=== PATIENT | female | born 1990 | race Caucasian/White ===

== ENCOUNTER 2018-01-25 08:00 | Inpatient (IN) ==
[2018-01-25] MEDS ORDERED: Naloxone 0.4 MG/ML INJ IVP PRN (08:16)
[2018-01-25] MEDS ORDERED: *HR* Nalbuphine 10 MG/ML AMPUL IVP PRN (08:16)
[2018-01-25] MEDS ORDERED: Metoclopramide 10 MG/2 ML VIAL IVP PRN (08:16)
[2018-01-25] MEDS ORDERED: Ondansetron 4 MG/2 ML VIAL IVP PRN (08:16)
[2018-01-25] MEDS ORDERED: Famotidine 20 MG/2 ML VIAL IVP PRN (08:16)
[2018-01-25] MEDS ORDERED: miSOPROStol 25 MCG TABLET VG PRN (08:19)
--- NOTE | 2018-01-25 08:24 | OB/GYN History & Physical ---
Date of Encounter: 01/25/18 Time of Encounter: 08:20 Assessment and Plan (1) and not yet delivered in third trimester Current visit: Yes Status: Acute (2) 39 weeks gestation of Current visit: Yes Status: Acute (3) Elective induction of labor planned Current visit: Yes Status: Acute Patient reduced with a Santamaria catheter and Cytotec plan is to anticipate vaginal delivery History of Present Illness HPI: Ms. Odom is a 27 year old female 2 para 1 at 39-0/7 weeks by last menstrual period equal to 9-4/7 week ultrasound who presented for induction of labor secondary term with favorable cervix. Patient's care has been unremarkable patient does of a history of microadenoma recently had some blurred vision did follow up with her speech and drama teacher and corrections identification technician they did not feel it was related to that. PIH labs obtained the patient was also unremarkable. Blood pressures remained stable. Patient did have an ultrasound 2 weeks ago baby weight 2848 g which was to 50th percentile with an MILADIS of 14 cm. Patient is GBS negative, Rh-, rubella positive, Varicella negative. Has been having occasional contractions at nighttime nothing throughout the day denies any leaking of fluid with movement. Past Med Surg Social Fam HX - Past Medical History Source: patient, old records reviewed Medical history: non-contributory, other (Pituitary microadenoma) Psychiatric history: no psych history - Past Surgical History Surgical History: no surgical history - Social History Smoking Status: Never smoker Smokeless Tobacco Status: No Alcohol use: none Drug use: none Occupational status: employed Current living situation: Home - Independent Activity Level: Independent ambulation Recent Out of Country Travel Within the Last 8 Weeks: No Exposure or Possible Exposure to Illness During Travel: No - Additional Family History Additional family history: Family history noncontributory Obstetrical History - Pregnancies : 2 Para: 1 Term: 1 : 0 Ab's: 0 Livin Medications and Allergies Amoxicillin [Amoxil] 500 mg PO BID #20 capsule 09/22/17 [Rx] Doxylamine/Pyridoxine HCl [Diclegis Dr 10-10 mg Tablet] 1 each PO DAILY [History] Pnv62/FA/Om3/Dha/Epa/Fish Oil [[facility] Gummy Vitamins] 1 each PO DAILY [History] 3 Allergy/AdvReac Type Severity Reaction Status Date / Time muscle relaxers Allergy Hypotension Uncoded 09/22/17 12:41 Review of System OB All systems PM: reviewed and no additional remarkable complaints except as stated Exam - Constitutional Constitutional: well developed, well nourished, no acute distress, average body habitus - HEENT HEENT: EOMI, PERRL, Mucus Membranes Moist - Neck Neck exam: full ROM - Lungs Respiratory exam: CTAB - Cardiovascular Cardiovascular exam: RRR - Abdomen Abdomen: Present: bowel sounds normal, gravid - Cervix Dilation: 2 Effacement: 70 Station: -3 (Santamaria catheter placed 30 mL balloon inflated then 25 g Cytotec placed vaginally, heart tones 140s reactive occasional contractions seen.) Results All other labs normal. - VTE Reasons for not Prescribing Prophylaxis: Treatment not Indicated - Low risk for VTE
[2018-01-25] MEDS ORDERED: Ringers Solution, Lactated 1,000 ML IVC SCH (08:30)
[2018-01-25 08:48] LABS: Basophils # 0.1 K/mcL (0.0-0.2); Basophils % 0.4 %; Eosinophils # 0.1 K/mcL (0.0-0.6); Eosinophils % 0.7 %; Hematocrit 33.6 % (35.3-44.9); Hemoglobin 11.3 g/dL (11.5-15.4); Immature Granulocytes % 1.1 % (0-4); Lymphocytes # 2.5 K/mcL (0.6-4.6); Lymphocytes % 18.6 %; Mean Corpuscular HGB Conc 33.6 g/dL (31.6-35.5); Mean Corpuscular Hemoglobin 28.3 pg (28.0-33.3); Mean Platelet Volume 10.1 fL (9.4-12.4); Monocytes # 0.9 K/mcL (0.0-1.3); Monocytes % 6.3 %; Platelet Count 290 K/mcL (140-400); Red Cell Distribution Width 13.8 % (11.5-14.5); Segmented Neutrophils % 72.9 %
[2018-01-25 09:19] LABS: Amphetamine Screen,Urine Negative ng/mL (Cutoff=1000); Barbiturate Screen,Urine Negative ng/mL (Cutoff=200); Benzodiazepines Screen,Urine Negative ng/mL (Cutoff=200); Cannabinoid Screen,Urine Negative ng/mL (Cutoff = 50); Cocaine Screen,Urine Negative ng/mL (Cutoff= 300); Opiate Screen,Urine Negative ng/mL (Cutoff=300); Phencyclidine Screen,Urine Negative ng/mL (Cutoff=25)
--- NOTE | 2018-01-25 09:34 | Anesthesia Evaluation PreOp ---
Date of Encounter: 01/25/18 Time of Encounter: 09:32 - Past History Planned Operation: ritesh Cardiac History: Denies any Significant Hx Pulmonary History: Denies Any Significant HX HOPPER OPERATOR History: Other (Pituitary tumor, diagonosed 6-7 yrs ago with symptoms of H/A , double vision, and . All symptoms resolved after medcial treatment was prescribed. Has been off of medical treament during without return of symptoms) Other Medical History: GERD (occasional heartburn) Anesthesia History: No Prior Anesthetic Complications (no prior anesthetics) : Yes (39 weeks ) Alcohol Use: none Drug use: none Medications and Allergies Amoxicillin [Amoxil] 500 mg PO BID #20 capsule 09/22/17 [Rx] Pnv62/FA/Om3/Dha/Epa/Fish Oil [[facility] Gummy Vitamins] 1 each PO DAILY [History] 3 Allergy/AdvReac Type Severity Reaction Status Date / Time muscle relaxers Allergy Hypotension Uncoded 09/22/17 12:41 - Meds/Allergy Pre-op Review Medications Reviewed: Yes Allergies Reviewed: Yes Beta Blockers on Current Med List: No Anesthesia Results - Labs 01/25/18 08:30 Anesthesia Exam O2 Sat Height 1.6 m Weight 68.039 kg Height: 63 Weight: 68 - HOPPER OPERATOR LOC: Oriented HOPPER OPERATOR Motor: Normal RUE, Normal LUE, Normal RLE, Normal LLE, Normal Face HOPPER OPERATOR Sensory: Normal: RUE, LUE, RLE, LLE, Face Anesthesia Assess/Plan ASA Score: 2 Modified Ester Scale for Level of Consciousness: Cooperative, oriented, and tranquil Anesthetic Plan: Regional Monitoring Plan: Standard Monitors
[2018-01-25] MEDS ORDERED: *HR* FentaNYL (PF) 100 MCG/2 ML VIAL EP ONE (09:36)
[2018-01-25] MEDS ORDERED: EPHEDrine 50 MG/ML VIAL IVP PRN (09:36)
[2018-01-25] MEDS ORDERED: Bupivacaine-MPF 0.25% 10 ML VIAL EP ONE (09:36)
[2018-01-25] MEDS ORDERED: Epidural Premix (fent/bupiv) 110 ML EP SCH (09:45)
--- NOTE | 2018-01-25 12:38 | OB Labor Progress Note ---
Date of Encounter: 01/25/18 Time of Encounter: 12:35 Labor Progress Note - Subjective Subjective: patient states she is getting a little uncomfortable but still not ready for an epidural - Cervix Cervix: 4/80/-1 AROM clear fluid - Heart Tones Heart Tones: heart tones 140s reactive - [place]: Contractions every 2-3 minutes - Plan Plan: Continue current care. Augment with Pitocin if she does not have cervical change get epidural if desires plan is to anticipate vaginal delivery.
[2018-01-25] MEDS ORDERED: Epidural Premix (fent/bupiv) 110 ML EP ONE (13:49)
--- NOTE | 2018-01-25 14:16 | Anesthesia Procedures ---
Date of Encounter: 01/25/18 Time of Encounter: 14:15 Procedures: Anesthesia - Epidural/Spinal Patient ID/Chart reviewed: Yes Patient examined: Yes OB Eval: Gestational age: 39 OB Eval: : 2 OB Eval: Hx Para: 1 OB Eval: Contractions: Non-stressed pattern Consent Obtained: Yes Supplemental Oxygen: None/Room Air Site Prep: Aseptic Technique, 0.5% Chlorhexidine/Alcohol Patient position: upright Local Anesthetic: Lidocaine 1% Amount of Local Anesthetic used: 3 Touhy Needle Gauge: 18 Touhy Needle Depth (cm): 5 Catheter Depth at Skin (cm): 12 Test Dose (1.5% Lido + Epi): Volume given (mls): 3 Test Dose Result: Negative Loading Dose: 0.25% Marcaine (mls): 6 Loading Dose: Fentanyl (mcg): 100 Loading Dose Administered: Thru Touhy Needle Infusion Med: 0.125% Bupivacaine w/ 2 mcg/ml Fentanyl Infusion Rate (mls/hr): [address]: Tegaderm Interspace Used: L3-L4 Loss of Resistance (PÉREZ): Yes Blood: No CSF: No Paresthesia: No
[2018-01-25] MEDS ORDERED: Oxytocin 20 units/ LR 1000 mL 20 UNIT/1,000 ML BAG IVC ONE (16:35)
--- NOTE | 2018-01-25 17:54 | OB/GYN Procedure Note ---
Delivery - Delivery Date: 01/25/18 Provider: Rigoberto Currie Intrapartum events: none Delivery induction: shah, misoprostol Delivery augmentation: rupture of membranes Delivery monitor: external FHT, external uterine Anesthesia: epidural Estimated Blood Loss: 100 - Infant (s) A Delivery Date: 01/25/18 Delivery Time: 17:26 Presentation: vertex Position: LINO Route of delivery: Gender: Male Viability: Viable Pounds: 8 Ounces: 0 Weight Gram: 3.635 kg at 1 minute: 8 at 5 mins: 9 Shoulder Dystocia: not encountered Specimens collected: cord blood Placenta: spontaneous Cord: nuchal cord (x2), 3 umbilical vessels, nuchal reduced - Repair Episiotomy: none Laceration Description: Perineal - 1st Degree, Labial (left) - Complications Delivery complications: none Delivery comments: Patient is a 27-year-old 2 para 1 at 39-0/7 weeks who was brought in for an induction of labor secondary to term with labile cervix. Patient was induced with a Shah catheter and Cytotec Shah fell out within an hour. She was artificially ruptured when she was 4-5 cm clear fluid noted she did receive an epidural progressed appropriately became complete and pushed for approximately 30 minutes delivering a viable female infant in right occiput anterior presentation at 1726. There was a nuchal cord 2 loose and reduced and the infant was bulb suctioned on the abdomen. Apgars were 8 at 1 minute, 9 at 5 minutes, weight was 8 lbs. 0 oz. 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 Perineum had a first-degree perineal laceration extending up the left labia repaired with a 4-0 Monocryl in usual fashion. Cervix and vagina was intact.. Patient tolerated the delivery well she will be a observed for one hour before being taken floor. All needles lap sponge counts were correct 2 - Disposition Mom disposition: stable in LDR [place] disposition: stable in LDR
[2018-01-25] MEDS ORDERED: Measles/Mumps/Rubella Vacc 0.5 ML VIAL SQ PRN (18:26)
[2018-01-25] MEDS ORDERED: Rho Immune Globulin 1,500 UNIT SYRINGE IM PRN (18:26)
[2018-01-25] MEDS ORDERED: Acetaminophen 325 MG TABLET PO PRN (18:26)
[2018-01-25] MEDS ORDERED: Oxytocin 20 units/ LR 1000 mL 20 UNIT/1,000 ML BAG IVC SCH (18:26)
[2018-01-25] MEDS: Ibuprofen 600 MG TABLET PO PRN (19:20)
[2018-01-26] MEDS: Ibuprofen 600 MG TABLET PO PRN ×3 (01:07→16:30)
[2018-01-26 04:38] LABS: Basophils % 0.2 %; Eosinophils % 0.2 %; Immature Granulocytes % 0.8 % (0-4); Lymphocytes # 2.5 K/mcL (0.6-4.6); Lymphocytes % 13.1 %; Mean Corpuscular HGB Conc 33.2 g/dL (31.6-35.5); Mean Corpuscular Hemoglobin 28.1 pg (28.0-33.3); Mean Corpuscular Volume 84.7 fL (83.0-100.0); Monocytes # 1.8 K/mcL (0.0-1.3); Monocytes % 9.3 %; Neutrophils # 14.6 K/mcL (1.6-8.9); Platelet Count 239 K/mcL (140-400); Red Blood Count 2.95 M/mcL (3.82-4.97); Red Cell Distribution Width 13.8 % (11.5-14.5); Segmented Neutrophils % 76.4 %
[2018-01-26 04:48] LABS: Hemoglobin 8.3 g/dL (11.5-15.4)
[2018-01-26] MEDS ORDERED: DHA PO SCH (09:00)
[2018-01-26] MEDS ORDERED: EPA PO SCH (09:00)
[2018-01-26] MEDS ORDERED: FISH OIL PO SCH (09:00)
[2018-01-26] MEDS ORDERED: Prenatal Vit/FA 1 EACH TABLET PO SCH (09:00)
[2018-01-26] MEDS ORDERED: PNV62 PO SCH (09:00)
[2018-01-26] MEDS ORDERED: [UNRECOGNIZED DRUG - OTHER] PO SCH (09:00)
--- NOTE | 2018-01-26 10:14 | Discharge Summary ---
Date of Encounter: 01/26/18 Time of Encounter: 10:11 - Discharge Diagnosis (1) Vaginal delivery Priority: Primary Status: Acute Comments: Pt meeting all PP milestones, bottle feeding, desires discharge, (2) anemia Priority: Secondary Status: Acute Comments: will discharge home on iron BID - Discharge Medications Prescriptions: Ibuprofen [Motrin] 600 mg PO Q6HR PRN #60 tablet PRN Reason: Cramping Docusate [Colace] 100 mg PO BID #60 capsule Ferrous Sulfate 325 mg PO BIDWM #60 tablet Home Medications: Amoxicillin [Amoxil] 500 mg PO BID #20 capsule 09/22/17 [Rx] Pnv62/FA/Om3/Dha/Epa/Fish Oil [[facility] Gummy Vitamins] 1 each PO DAILY [History] Acetaminophen [Tylenol] 650 mg PO Q6HR PRN tablet 01/26/18 [Rx] Docusate [Colace] 100 mg PO BID #60 capsule 01/26/18 [Rx] Ferrous Sulfate 325 mg PO BIDWM #60 tablet 01/26/18 [Rx] Ibuprofen [Motrin] 600 mg PO Q6HR PRN #60 tablet 01/26/18 [Rx] Vit/FA 1 each PO DAILY tablet 01/26/18 [Rx] Allergies/Adverse Reactions: 3 Allergy/AdvReac Type Severity Reaction Status Date / Time muscle relaxers Allergy Hypotension Uncoded 09/22/17 12:41 Data Procedures and tests throughout hospitalization: Laboratory Tests 01/25/18 01/25/18 01/25/18 08:30 08:30 18:20 WBC 13.7 H RBC 4.00 Hgb 11.3 L Hct 33.6 L MCV 84.0 MCH 28.3 MCHC 33.6 RDW 13.8 Plt Count 290 MPV 10.1 Immature Gran % 1.1 Seg Neutrophils % 72.9 Lymphocytes % 18.6 Monocytes % 6.3 Eosinophils % 0.7 Basophils % 0.4 Neutrophils # 10.0 H Lymphocytes # 2.5 Monocytes # 0.9 Eosinophils # 0.1 Basophils # 0.1 Urine Opiates Screen Negative Ur Barbiturates Screen Negative Ur Phencyclidine Scrn Negative Ur Amphetamines Screen Negative U Benzodiazepines Scrn Negative Urine Cocaine Screen Negative U Marijuana (THC) Screen Negative Screen NEGATIVE Baby's Blood Type A RH POSITIVE Mother's Blood Type A RH NEGATIVE Rhogam Indicated YES Rhogam Req for Mother 1 01/26/18 04:13 WBC 19.2 H RBC 2.95 L Hgb 8.3 L D Hct 25.0 L MCV 84.7 MCH 28.1 MCHC 33.2 RDW 13.8 Plt Count 239 MPV 10.0 Immature Gran % 0.8 Seg Neutrophils % 76.4 Lymphocytes % 13.1 Monocytes % 9.3 Eosinophils % 0.2 Basophils % 0.2 Neutrophils # 14.6 H Lymphocytes # 2.5 Monocytes # 1.8 H Eosinophils # 0.0 Basophils # 0.0 Urine Opiates Screen Ur Barbiturates Screen Ur Phencyclidine Scrn Ur Amphetamines Screen U Benzodiazepines Scrn Urine Cocaine Screen U Marijuana (THC) Screen Screen Baby's Blood Type Mother's Blood Type Rhogam Indicated Rhogam Req for Mother Labs on day of discharge: Labs from last 24 hours 01/26/18 01/25/18 04:13 18:20 WBC 19.2 H RBC 2.95 L Hgb 8.3 L D Hct 25.0 L MCV 84.7 MCH 28.1 MCHC 33.2 RDW 13.8 Plt Count 239 MPV 10.0 Immature Gran % 0.8 Seg Neutrophils % 76.4 Lymphocytes % 13.1 Monocytes % 9.3 Eosinophils % 0.2 Basophils % 0.2 Neutrophils # 14.6 H Lymphocytes # 2.5 Monocytes # 1.8 H Eosinophils # 0.0 Basophils # 0.0 Screen NEGATIVE Baby's Blood Type A RH POSITIVE Mother's Blood Type A RH NEGATIVE Rhogam Indicated YES Rhogam Req for Mother 1 Date of admission: 01/25/18 08:07 Primary care physician: Conrad Diaz MD Consults: 01/25/18 18:26 Consult to Centrifuge Separator Operator [CONS] Routine Comment: Vaginal delivery, consult needed Discharging clinician: Ale Lancaster Anticipated date of discharge: 01/26/18 - Patient Status Disposition: Home, Self-Care Condition: Good Functional capacity at discharge: independent ambulation Overall status at discharge: patient is back to baseline - Discharge Instructions Follow Up With: Conrad Diaz MD [Primary Care Provider] - Rigoberto Currie DO [Partnered Physician] - - Diet and Activity Activity: resume usual activities as tolerated Diet: regular diet Hospital Course Reason for admission: induction of labor, IUP at term Delivery: Episiotomy: none Laceration: 1st degree Other procedures: none complications: none Discharge diagnosis: IUP at term delivered [place] baby: male Hospital course: Delivery - Delivery Date: 01/25/18 Provider: Rigoberto Currie Intrapartum events: none Delivery induction: shah, misoprostol Delivery augmentation: rupture of membranes Delivery monitor: external FHT, external uterine Anesthesia: epidural Estimated Blood Loss: 100 - Infant (s) A Delivery Date: 01/25/18 Delivery Time: 17:26 Presentation: vertex Position: LINO Route of delivery: Gender: Male Viability: Viable Pounds: 8 Ounces: 0 Weight Gram: 3.635 kg at 1 minute: 8 at 5 mins: 9 Shoulder Dystocia: not encountered Specimens collected: cord blood Placenta: spontaneous Cord: nuchal cord (x2), 3 umbilical vessels, nuchal reduced - Repair Episiotomy: none Laceration Description: Perineal - 1st Degree, Labial (left) - Complications Delivery complications: none Delivery comments: Patient is a 27-year-old 2 para 1 at 39-0/7 weeks who was brought in for an induction of labor secondary to term with labile cervix. Patient was induced with a Shah catheter and Cytotec Shah fell out within an hour. She was artificially ruptured when she was 4-5 cm clear fluid noted she did receive an epidural progressed appropriately became complete and pushed for approximately 30 minutes delivering a viable female infant in right occiput anterior presentation at 1726. There was a nuchal cord 2 loose and reduced and the was bulb suctioned on the abdomen. Apgars were 8 at 1 minute, 9 at 5 minutes, infant weight was 8 lbs. 0 oz. Placenta was then delivered spontaneously with a three-vessel cord, uncrater at the [employer] [facility] [place] OMS 3, anesthesia epidural, estimated blood loss was 100 mL. Perineum had a first-degree perineal laceration extending up the left labia repaired with a 4-0 Monocryl in usual fashion. Cervix and vagina was intact.. Patient tolerated the delivery well she will be a observed for one hour before being taken floor. All needles lap sponge counts were correct 2 - Disposition Mom disposition: stable in PP and appropriate for discharge. Time Attestation: Total time spent providing and/or coordinating discharge services: Time Spent: Less than 30 minutes Exam - Constitutional Vitals: Temp Pulse Resp BP Pulse Ox 97.4 F L 80 16 102/68 98 01/26/18 08:44 01/26/18 08:44 01/26/18 08:46 01/26/18 08:44 01/26/18 03:45 General appearance IM: A&O X 3 - Respiratory Respiratory exam: Present: CTAB - Cardiovascular Cardiovascular exam IM: Present: RRR - GI/Abdominal GI/Abdominal exam IM: soft - Uterine Tone: Firm Uterus Position: At Umbilicus - Extremities Exam Extremities exam IM: Present: normal capillary refill, normal inspection - Neurological Exam Neurological exam: normal gait, oriented X3 - Psychiatric Additional comments: Reports good mood.
[2018-01-26 18:02] VITALS: BP 110/73
[2018-01-26] MEDS ORDERED: Benzocaine/Menthol 56 GM AEROSOL SPRAY TP ONE (18:16)
== END 2018-01-26 18:53 | disposition home or self-care (01) | DRG 775 ==
LOC: 1NENULAB 08:07 → 1NENUOBS 18:25
PROVIDERS: ADMIT Obstetrics & Gynecology; ATTEND Obstetrics & Gynecology